=== PATIENT | male | born 1960 | race Caucasian/White ===

== ENCOUNTER 2022-08-22 14:03 | Emergency (ER) | payer OTHER, BC, SELFPAY ==
[2022-08-22 14:24] VITALS: BP 145/84; PULSE 90; RESP 16; TEMP 36.7; O2SAT 98; BMI 27.9
--- NOTE | 2022-08-22 16:12 | ED_ITS ---
HPI - General Adult General Chief complaint: Unspecified Complaint, Adult Stated complaint: Fallen on by dirt pile Time Seen by Provider: 08/22/22 16:05 History of Present Illness HPI narrative: This 62-year-old male comes in for evaluation of injuries that occurred just prior to arrival at his work place. There was a hole that was just dog to prepare for construction project. He was standing next to a wall of dirt that collapsed and fell on top of him. His coworkers had to take him out of the dirt. He did not hit his head or have loss of consciousness. He was not completely buried in the dirt but had it covering most of his body. He has a superficial abrasion on the right upper arm and on the inner aspect of his right leg. He was able to get up and ambulate. He is not complaining of pain. He states that he would not have come in here except his coworkers insisted that he come in to be evaluated. Related Data Allergies Allergy/AdvReac Type Severity Reaction Status Date / Time No Known Drug Allergies Allergy Verified 08/22/22 14:30 Review of Systems Status of ROS: Reports: 10 or more systems reviewed and unremarkable except as noted in History and below Narrative: Constitutional: No fevers, no weight gain or loss. Eyes: No discharge. No vision changes. HENT: No congestion, no sore throat, no ear pain. Cardiovascular: No chest pain, no palpitations. Respiratory: No shortness of breath, no wheezes, no cough. Gastrointestinal: No abdominal pain, no vomiting, no diarrhea. Genitourinary: No dysuria, no hematuria. Musculoskeletal: Normal range of motion. Skin: No rashes, no pruritis. Abrasion on the right upper arm and right leg. Neurological: No dizziness, weakness, sensory change, speech change. Endo/Heme/Allergies: No bruising or bleeding. No polydipsia. Pysch: no suicidality, no anxiety, no insomnia. All other systems reviewed and are negative. Exam Narrative: Exam Narrative: Constitutional: Well-developed, well-nourished, no acute distress. HEENT: Normocephalic, atraumatic. Neck: Normal range of motion. Nontender. Supple. Heart: Regular. No murmurs. Normal rate. Intact distal pulses. Lungs: Clear to auscultation. No chest discomfort. No wheezes, rhonchi, or rales. Abdomen: Normal bowel sounds. Nontender. No rebound tenderness. Genitalia: Deferred. Back: No midline tenderness. Normal range of motion. Extremities: Normal range of motion. Superficial abrasion on the lateral aspect of the right upper arm. Another superficial abrasion on the inner aspect of the right upper leg. Skin: Intact. No rash. Warm. No erythema or pallor. Neurologic: No altered sensation. No weakness. Alert and oriented. He is able to ambulate normally. Psychiatric: No suicidality. No anxiety or depression. No insomnia. Nursing notes and vitals signs are reviewed. Const: Vital Signs, click to edit/add: Vital Signs - 24 hr 08/22/22 14:24 Temperature 98.0 F Pulse Rate [Right Pulse Oximeter] 90 Respiratory Rate 16 Blood Pressure [Ri ght Upper Arm] 145/84 H Pulse Oximetry 98 Oxygen Delivery Me thod Room Air Course Vital Signs Vital signs: Initial Vital Signs Temperature 98.0 F 08/22/22 14:24 Temperature Source Temporal Artery Scan 08/22/22 14:24 Pulse Rate 90 08/22/22 14:24 Pulse Rhythm Regular 08/22/22 14:24 Pulse Strength 3+ Normal 08/22/22 14:24 Respiratory Rate 16 08/22/22 14:24 Blood Pressure 145/84 H 08/22/22 14:24 Blood Pressure Mean 104 08/22/22 14:24 Pulse Oximetry 98 08/22/22 14:24 Oxygen Delivery Method Room Air 08/22/22 14:24 Vital Signs Temperature 98.0 F 08/22/22 14:24 Pulse Rate 90 08/22/22 14:24 Respiratory Rate 16 08/22/22 14:24 Blood Pressure 145/84 H 08/22/22 14:24 Pulse Oximetry 98 08/22/22 14:24 Oxygen Delivery Method Room Air 08/22/22 14:24 Temperature 98.0 F 08/22/22 14:24 Pulse Rate 90 08/22/22 14:24 Respiratory Rate 16 08/22/22 14:24 Blood Pressure 145/84 H 08/22/22 14:24 Pulse Oximetry 98 08/22/22 14:24 Oxygen Delivery Method Room Air 08/22/22 14:24 Medical Decision Making MDM Narrative Medical decision making narrative: This patient comes in for evaluation of injuries related to an incident at work as described above. His wounds were cleansed and noted to be superficial. There is no indication for need for repair of these wounds. The patient has no complaints and his exam is otherwise normal. I did discuss lab and imaging options which the patient declined in a process of shared decision making. He is okay to be discharged home. Discharge Plan Discharge Clinical Impression: Contusion of multiple sites Patient Disposition: Home, Self-Care Condition: Stable Additional Instructions: Use [id number] medicines as needed and directed. Increase activity as tolerated. Follow up with MD or return if worsening. Stand Alone Forms: [facility] Info Instructions
== END 2022-08-22 16:53 | disposition home or self-care (01) ==
PROVIDERS: Emergency Provider Emergency Medicine Emergency Medical Services
DX: S40.021A Contusion of right upper arm, initial encounter (principal); S70.11XA Contusion of right thigh, initial encounter; W17.2XXA Fall into hole, initial encounter; Y93.H3 Activity, building and construction; Y92.69 Other specified industrial and construction area as the place of occurrence of the external cause; Y99.0 Civilian activity done for income or pay
CPT/HCPCS: 99282; 99284